=== PATIENT | male | born 1995 | race Asian ===

== ENCOUNTER 2022-05-08 13:53 | Outpatient (CLI) | payer OTHER ==
[~2022-05-08 13:53] MED LIST: GADOBUTROL 7.5 MMOL/7.5 ML VIAL ONE
[2022-05-08] MEDS ORDERED: GADOBUTROL 7.5 MMOL/7.5 ML VIAL IVP ONE (18:01)
--- NOTE | 2022-05-09 15:12 | MRI Report ---
PROCEDURE: WRIST W/WO - RT INDICATIONS: WRIST MASS CONTRAST: gadavist 7.1ml TECHNIQUE: Noncontrast coronal proton density fast spin echo and T2 fast spin echo with fat saturation; coronal 3-D gradient echo, axial T1 spin echo and T2 fast spin echo with fat saturation, axial T1 spin echo w ith fat saturation, sagittal T1 spin echo through the wrist. Post-contrast axial, coronal, and sagit daphnie T1 spin echo with fat saturation through the wrist. COMPARISON: None. FINDINGS: Image quality: Excellent. Bones and cartilage: No suspicious osseous enhancement. The carpal bones are normally aligned. No bone marrow contusions or fractures. No evidence for avascular necrosis. Overlying cartilage surfa ronald appear normal. Carpal ligaments: The scapholunate and lunotriquetral ligaments appear intact. In the absence of in tra-articular contrast, the extrinsic carpal ligaments are not well identified. On sagittal images, the pisohamate ligament appears intact. Triangular fibrocartilage complex: The triangular fibrocartilage appears intact. The adjacent menis sly homolog appears normal in the absence of intra-articular contrast. The extensor carpi ulnaris te ndon is thickened with surrounding soft tissue edema at the level of ulnar styloid and triquetrum. Tendons and soft tissues: Fiducial marker is placed over radial aspect of wrist at the level of dist al radius/radial styloid. No discrete soft tissue mass or fluid collection is seen. Significantly thi ckened abductor pollicis longus and extensor pollicis brevis tendons is seen at this level with surro unding soft tissue edema. No suspicious soft tissue enhancement. The carpal tunnel structures appear normal, including the median nerve. The ulnar nerve appears normal within Guyon's canal. Rest of th e extensor tendon compartments demonstrate normal morphology, without pathologic tendon sheath fluid. No soft tissue ganglion cysts. IMPRESSION: 1. No discrete soft tissue mass or fluid collection is noted over radial aspect of right wrist at pat ient's reported area of palpable mass. Thickened abductor pollicis longus and extensor pollicis brev is tendons at the level of distal radius/radial styloid with surrounding soft tissue edema and enhanc ement is seen suggestive of moderate tendinosis. 2. Significant tendinosis is also noted involving extensor carpi ulnaris tendon at the level of the r adial styloid and triquetrum. 3. No marrow edema. No fracture or dislocation. No abnormal intraosseous enhancement. 4. Intrinsic and extrinsic wrist ligaments are intact. [place] of fibrocartilage complex is intact. Reviewed by: Heraclio Torres MD on 05/09/2022 3:10 PM PDT Approved by: Heraclio Torres MD on 05/09/2022 3:10 PM PDT Station ID: [id number]
== END 2022-05-08 13:54 | disposition home or self-care (01) ==
LOC: DI 13:53
PROVIDERS: ATTEND Orthopaedic Surgery
DX: R22.31 Localized swelling, mass and lump, right upper limb (principal); M67.833 Other specified disorders of tendon, right wrist
CPT/HCPCS: 73223; A9585